=== PATIENT | male | born 1970 | race Two or more races ===

== ENCOUNTER 2019-11-20 14:46 | Outpatient (CLI) | payer BC ==
[2019-11-20] MEDS ORDERED: OMNIPAQUE 350 MG/ML, 75ML BOTTLE ONE (16:16)
== END 2019-11-20 23:59 | disposition home or self-care (01) ==
LOC: RAD 14:46
PROVIDERS: ATTEND Nurse Practitioner
DX: R06.02 Shortness of breath (principal); R79.1 Abnormal coagulation profile
CPT/HCPCS: 36415; 71275; 82565; Q9967